=== PATIENT | female | born 1940 | race Two or more races ===

== ENCOUNTER 2023-05-04 14:40 | Emergency (ER) | payer OTHER ==
[~2023-05-04] VITALS: Ht 152.4 cm; Wt 70.3 kg
[~2023-05-04 14:40] MED LIST: SULFAMETHOXAZOL1 TA6 PO
[2023-05-04] MEDS ORDERED: ZESTRIL30 MG PO (14:52)
[2023-05-04] MEDS ORDERED: SYNTHROID50 MCG PO (14:53)
[2023-05-04] MEDS ORDERED: KAPSPARGO SPRIN50 MG PO (14:53)
[2023-05-04] MEDS ORDERED: LEVOTHYROXINE25 MCG PO (14:53)
[2023-05-04] MEDS ORDERED: PEPCID AC20 MG PO (14:53)
[2023-05-04] MEDS ORDERED: ATORVASTATIN CA40 MG PO (14:54)
[2023-05-04] MEDS ORDERED: LANTUS SOL100 UNIT/1 (14:54)
[2023-05-04] MEDS ORDERED: HUMALOG100 UNIT/2 SQ (14:54)
[2023-05-04] MEDS ORDERED: TYLENOL ARTHRI650 MG PO (17:22)
[2023-05-04] MEDS ORDERED: ZANAFLEX2 M1 PO (17:22)
== END 2023-05-04 17:34 | disposition home or self-care (01) ==
LOC: ER 14:40
DX: M54.31 Sciatica, right side (principal)